=== PATIENT | female | born 2000 | race Two or more races ===

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

== ENCOUNTER 2025-03-05 17:20 | Emergency (ER) | payer MEDICAID ==
[~2025-03-05] VITALS: Ht 152.4 cm; Wt 69.2 kg
--- NOTE | 2025-03-05 18:07 | ED.PDOC ---
General HPI Comments 25y F who presents to the ED for chief complaint of pelvic pain. Pt states she started to have lower middle pelvic pain since earlier this AM. Pt states the pain started at 1000 this AM and states is started to radiate to the R ovary. Pt rates her pain 6/10, intermittent, sharp in nature, with no associated exacerbating or relieving factors. Pt states she started to have pain when taking deep breaths and started to have L sided chest wall pain and came to the ED for further evaluation. Pt states she was taking hormone injections to try and get and otherwise states she did get her period a few days ago. Pt denies any other symptoms at this time. Chief Complaint: Pelvic Pain Time Seen by MD: 18:01 Primary Care Provider: KIMBERLY Macdonald notes: Medications, Allergies Allergies: Coded Allergies: Acetaminophen (Verified Allergy, Unknown, 03/05/25) Home Meds Active Scripts Ciprofloxacin Hcl (Cipro) 500 Mg Tab, 1 TAB PO BID, #14 TAB Prov:SHAKIRA DAVIS MD 03/05/25 Information Source: Patient Mode of Arrival: Ambulatory Brought in by: self Severity: Moderate Inability to void: None Timing: Hours Duration: Since onset, Intermittent Prehospital treatment: None Onset: Spontaneous Symptoms: None History of: None Location: Suprapubic Modifying factors: None associated signs and symptoms: None Past Medical History PAST MEDICAL HISTORY: Asthma Surgical History: Denies all surgeries VENDING MACHINE MECHANIC History: No Pertinent VENDING MACHINE MECHANIC History Family History Family History: Family hx of HTN Social History Smoker: Non-Smoker Alcohol: Denies ETOH Use Drugs: Denies Drug Use Lives In: Home Constitutional: denies: chills, diaphoresis, fatigue, fever, malaise, sweats, weakness, others EENTM: denies: blurred vision, double vision, ear bleeding, ear discharge, ear drainage, ear pain, ear ringing, eye pain, eye redness, hearing loss, mouth pain, mouth swelling, nasal discharge, nose bleeding, nose congestion, nose pain, photophobia, tearing, throat pain, throat swelling, voice changes, others Respiratory: denies: cough, hemoptysis, orthopnea, SOB at rest, shortness of breath, SOB with excertion, stridor, wheezing, others Cardiovascular: denies: chest pain, dizzy spells, diaphoresis, Dyspnea on exertion, edema, irregular heart beat, left arm pain, lightheadedness, palpitations, PND, syncope, others Gastrointestinal: reports: others (pelvic pain); denies: abdomen distended, abdominal pain, blood streaked bowels, constipated, diarrhea, dysphagia, difficulty swallowing, hematemesis, melena, nausea, poor appetite, poor fluid intake, rectal bleeding, rectal pain, vomiting Genitourinary: denies: abnormal vagina bleeding, burning, dyspareunia, dysuria, flank pain, frequency, hematuria, incontinence, pain, , vagina disch arge, urgency, others Neurological: denies: dizziness, fainting, headache, left sided numbness, left sided weakness, numbness, paresthesia, pre-existing deficit, right sided numbness, right sided weakness, seizure, speech problems, tingling, tremors, weakness, others Musculoskeletal: denies: back pain, gout, joint pain, joint swelling, muscle pain, muscle stiffness, neck pain, others Integumetry: denies: bruises, change in color, change in hair/nails, dryness, laceration, lesions, lumps, rash, wounds, others Allergic/Immunocompromised: denies: Difficulty Healing, Frequent Infections, Hives, Itching, others Hematologic/Lymphatic: denies: anemia, blood clots, easy bleeding, easy bruising, swollen glands, others Endocrine: denies: excessive hunger, excessive sweating, excessive thirst, excessive urination, flushing, intolerance to cold, intolerance to heat, unexplained weight gain, unexplained weight loss, others Psychiatric: denies: anxiety, bipolar disorder, depression, hopeless, panic disorder, schizophrenia, sleepless, suicidal, others All Other Systems: Reviewed and Negative Physical Exam General Appearance: No Apparent Distress HEENT: Normal ENT Inspection, Pharynx Normal, TMs Normal Neck: Full Range of Motion, Non-Tender, Normal, Normal Inspection Respiratory: Chest Non-Tender, Lungs Clear, No Accessory Muscle Use, No Respiratory Distress, Normal Breath Sounds Cardiovascular: No Edema, No JVD, No Murmur, No Gallop, Normal Peripheral Pulses, Regular Rate/Rhythm Breast Exam: Deferred Gastrointestinal: No Organomegaly, Non Tender, No Pulsatile Mass, Normal Bowel Sounds, Soft Genitalia: Deferred Pelvic: Deferred Rectal: Deferred Extremities: No calf tenderness, Normal capillary refill, Normal inspection, Normal range of motion, Non-tender, No pedal edema Musculoskeletal : Apperance: Normal Neurologic: Alert, science professor II-XII nml as Tested, No Motor Deficits, Normal Affect, Normal Mood, No Sensory Deficits Cerebellar Function: Normal Reflexes: Normal Skin: Dry, Normal Color, Warm Lymphatic: No Adenopathy Was a procedure done? Was a procedure done?: No Differential Diagnosis Kidney stone (Female): Ovarian torsion, Pyelonephritis, Other (endometriosis, uterine fibriods) Urinary Problem (Female): PID, Pyelonephritis, Urinary retention, UTI, Other X-Ray, Labs, Meds, VS Vital Signs Date Time Temp Pulse Resp B/P (MAP) Pulse Ox O2 Delivery O2 Flow Rate FiO2 03/05/25 20:22 97.8 72 16 138/80 (99) 99 97.8 03/05/25 17:22 97.2 76 20 142/97 100 97.2 Lab Test 03/05/25 17:57 Range/Units Urine Color Light-yellow Yellow Urine Clarity Clear Clear Urine pH 5.5 5.0-9.0 Urine Specific [place] 1.019 1.001-1.035 Urine Protein Negative Negative Urine Ketones Negative Negative Urine Blood 2+ H Negative /uL Urine Nitrite Negative Negative Urine Bilirubin Negative Negative Urine Urobilinogen Normal Negative mg/dL Urine Leukocyte Esterase 2+ Negative /uL Urine RBC 65 0 - 4 /hpf Urine Microscopic WBC 4 0-5 /HPF Urine Squamous Epithelial Cells Few <5 /hpf Urine Bacteria Few H None Seen /hpf Urine Mucus Few None Seen Urine Glucose Normal Normal mg/dL Urine Test Negative Negative Ultrasound of the pelvis is negative. The urine test is positive for UTI The test is negative The patient is being discharged and will follow up with the primary care doctor The patient will return to the emergency department's condition worsens The patient was started on Cipro Images Reviewed?: Images reviewed and evaluated by me Time of 1ST Reevaluation: 18:35 Reevaluation 1ST: Unchanged Patient Education/Counseling: Diagnosis, Treatment, Prognosis, Need For Follow Up Family Education/Counseling: No Family Present SEPSIS Sepsis Screen Date sepsis recognized/suspect: Mar 05, 2025 Time Sepsis recognized/suspect: 1721 Recent Procedure: No On Antibiotic Therapy: No Respiratory Rate >20: No Heart Rate >90: No Temp<36 C (96.8 F) or >38.3 C: No SBP <90 or MAP <65 mmHG: No New Acute Mental Status Change: No Is the patient on CPAP, BIPAP,: No Physician Orders Pelvic (03/05/25 17:47) Transvaginal Us Non Ob (03/05/25 19:47) Vital Signs Date Time Temp Pulse Resp B/P (MAP) Pulse Ox O2 Delivery O2 Flow Rate FiO2 03/05/25 20:22 97.8 72 16 138/80 (99) 99 97.8 03/05/25 17:22 97.2 76 20 142/97 100 97.2 Departure 1 Departure Time of Disposition: 20:46 Impression: Primary Impression: UTI (urinary tract infection) Qualified Codes: N30.00 - Acute cystitis without hematuria Additional Impression: Pelvic pain Qualified Codes: R10.20 - Pelvic and perineal pain unspecified side Disposition: HOME / SELF CARE / HOMELESS Condition: Fair e-Prescriptions Ciprofloxacin Hcl (Cipro) 500 Mg Tab 1 TAB PO BID, #14 TAB Prov: SHAKIRA DAVIS MD 03/05/25 Discharged With: Self Critical Care Note Critical Care Time?: No Stability Stability form required: No Heart Score Heart Score: Heart Score Response (Comments) Value History N/A 0 EKG N/A 0 Age N/A 0 Risk Factors N/A 0 Troponin N/A 0 Total 0 I personally scribed for SHAKIRA DAVIS MD ([email or web address]) on 03/05/25 at 18:07. Electronically submitted by Paula Crockett ([facility]). SHAKIRA DAVIS MD Mar 05, 2025 18:07
[2025-03-05 18:19] LABS: Urine Protein, UAD Negative (Negative)
[2025-03-05 20:22] VITALS: BP 138/80; PULSE 72; RESP 16; TEMP 97.8; O2SAT 99
--- NOTE | 2025-03-05 20:30 | DVH ---
EXAM: US PELVIC HISTORY: pain COMPARISON: None TECHNIQUE: Transabdominal and transvaginal imaging was utilized. Grayscale and color doppler evaluation. Images were stored in the patient's permanent medical record. FINDINGS: UTERUS: 6.2 x 3.1 x 3.9 cm. Endometrial stripe: 0.5 cm. Retroverted uterus RIGHT OVARY: 3.2 x 1.4 x 2.6 cm.Normal vascularity. No suspicious masses or cysts. LEFT OVARY: 2.7 x 2.1 x 2.3 cm. Normal vascularity. No suspicious masses or cysts. OTHER: There is trace free fluid in the pelvis which is non-specific. IMPRESSION: 1. Unremarkable pelvic ultrasound.
[2025-03-05] MEDS ORDERED: CIPR-173 PO (20:47)
== END 2025-03-05 21:04 | disposition home or self-care (01) ==
LOC: ER 17:20 → EEVIPCON 17:20 → ER 21:04
DX: N39.0 Urinary tract infection, site not specified (principal); R10.20 Pelvic and perineal pain unspecified side; J45.909 Unspecified asthma, uncomplicated; Z79.899 Other long term (current) drug therapy
CPT/HCPCS: 76830; 76856; 81001; 81025